=== PATIENT | male | born 1960 | race Caucasian/White ===

== ENCOUNTER 2017-06-08 08:51 | Inpatient (IN) | payer OTHER ==
[~2017-06-08] VITALS: Ht 162.6 cm; Wt 102.3 kg
--- NOTE | ~2017-06-08 | EKG ---
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 : 1960 Requested By: Arturo Richards Order Number: [id number] MD: Jose Dias Measurements Intervals [place] Rate: 50 P: -14 MN: 129 QRS: 138 QRSD: 97 T: QT: 432 QTc: 394 Interpretive Statements Incomplete EKG Sinus rhythm Poor R wave progression Low voltage, extremity leads Recommend repeat EKG with all leads present Electronically Signed On 06-10-2017 9:06:14 CDT by Jose Dias [email or web address] <ELECTRONICALLY SIGNED> By: Jose Dias MD, [facility] 06/10/17 09 075 075 Jose Dias MD, [facility] /EPI
--- NOTE | ~2017-06-08 | CATHLAB ---
[facility] [place] [address] INVASIVE PROCEDURE REPORT Name: EKATERINA REES Room #: 208-P [facility] [place] [facility]#: [id number] Admission: 06/08/17 Attend Phys: Estrada Balderas, Discharge: 06/09/17 Date of : 60 Date of Service: 06/10/17 0924 Report #: [id number] THIS REPORT FOR: //name// APPROVED REPORT Patient Details The patient is a 56 year-old male Event Personnel Arturo Richards Dermatopathologist, Pablo Watters RN RN, Cony Jean RN RN, David Mae Monitor, Yamilet No RTYenifer Monitor, Katalina Baum Procedures Performed Art Access - R femoral artery* , Complete Heart CatheterizationLe Heart Cath w/or w/o Coronaries [id number] [facility] Procedure Narrative The Right Groin^ was infiltrated with 1% Lidocaine subcutaneous anesthesia. A PINNACLE 6FR Sheath #[id number] sheath was inserted into the RFA^. Coronary angiography was performed using coronary diagnostic catheters. The right coronary system was accessed and visualized with a JR4 catheter. The left coronary system was accessed and visualized with a JL4 catheter. The left ventricle was accessed and visualized with a PIGTAIL catheter. Left ventriculogram was performed in 30 degree projection. Closure device was deployed with a 6 Fr MYNXGRIP 6/7F #[id number]. The patient tolerated the procedure well and there were no complications associated with the procedure. There was no hematoma. Intraoperative Conscious Sedation Sedation start time: 11:52 Case end Time: 12:09 Fluoro Time: 2.10 minutes Dose: 520 mGy Contrast Type and Amount: Omnipaque 160 ml Hemodynamics The aortic pressure is 126/71 mmHg with a mean of 94 mmHg. The left ventricular pressure is 115/21 mmHg with a mean of mmHg. The left ventricular end diastolic pressure is 26 mmHg. Conclusion #1 normal left ventricular size and systolic function [facility] [address] [place] [address] INVASIVE PROCEDURE REPORT Name: EKATERINA REES Room #: 208-P [facility] [place] .R.#: [id number] Admission: 06/08/17 Attend Phys: Estrada Balderas, Discharge: 06/09/17 Date of : 60 Date of Service: 06/10/17 0924 Report #: [id number] #2 left main free disease giving rise LAD and circumflex #3 LAD extends to the apex with minimal irregularity #4 nondominant circumflex with mild disease #5 dominant right coronary artery with minimal irregularity Recommendations and plan continued aggressive risk factor modification no indication for coronary intervention. No lifting for 48 hours overlying tub [employer] or [employer] for a week <ELECTRONICALLY SIGNED> By: Arturo Richards MD, [facility] 06/10/17923 3 3 Arturo Richards MD, [facility] /INF
--- NOTE | ~2017-06-08 | HC ---
[facility] [place] [address] CONSULTATION Name: EKATERINA REES KINA Room #: 208-P [facility] M.R.#: [id number] Admission: 06/08/17 Attend Phys: Estrada Balderas MD Discharge: Date of : 60 Report #: [id number] THIS REPORT FOR: //name// CC: [facility] physician/PCP Estrada Balderas CARDIOLOGY CONSULT HISTORY OF PRESENT ILLNESS: The patient is a 56-year-old male who has a history of schizophrenia and he says heart failure since 1979 with a stroke in 1979, apparently moved here from [place] the last few weeks. Although the story is somewhat not consistent, his story does change frequently. He comes in with recurrent chest pain, left neck and arm. He denies being associated with any symptoms, although the ER states he had some shortness of breath. He states he has been more fatigued; however, he never said he had a stent. He denies any prior intervention. He said he refused a cardiac catheterization in 1979, and had some kind of stroke at that time. He has multiple risk factors for coronary artery disease and is a tobacco user he states. Longstanding schizophrenia, which he admits to. Does admit to taking Lasix, levothyroxine, simvastatin, Seroquel, Dilantin, Haldol, and Cogentin. Some sort of seizure disorder, which he did not expound on. His laboratory work was relatively unremarkable. First 2 troponins were negative. The EKG is not impressive, it is a normal tracing. H and H are 14 and 43. Creatinine is 0.9. The BNP is 52, so there does not also appear to be any clinical signs of heart failure. PAST MEDICAL HISTORY: Positive for alleged heart failure, but not substantiated, history of a stroke in 1980, seizure disorder, schizophrenia, hypercholesterolemia, hypertension, although really takes no medications, and tobacco use. He denies surgeries. FAMILY HISTORY: He states he had a mother and a brother, in their 50s or 60s they had coronary issues. SOCIAL HISTORY: He lives here alone in a hotel room. He does have some family here. He denies alcohol or illicit drugs, but a pack a day smoker. REVIEW OF SYSTEMS: Essentially negative. He does have some dysuria. He has had some nocturia. ALLERGIES: PROLIXIN AND IVP DYE. PHYSICAL EXAMINATION: VITAL SIGNS: Blood pressure is 94/50, pulse is 50. HEENT: Eyes reveal xanthelasmas. Pharynx is clear. [place] [address] CONSULTATION Name: EKATERINA REES Room #: [facility] M.R.#: [id number] Admission: 06/08/17 Attend Phys: Estrada Balderas MD Discharge: Date of : 60 Report #: [id number] NECK: Shows preserved upstrokes. LUNGS: Clear. CARDIOVASCULAR: Regular rate and rhythm, S1, S2. Somewhat distant heart tones. ABDOMEN: Soft. There is slight tenderness in the midepigastric. EXTREMITIES: Reveal no edema. Distal pulses were intact. NEUROLOGIC: Nonfocal. SKIN: Warm and dry. MUSCULOSKELETAL: No gross joint deformity. I did not ambulate him. NEUROLOGIC: Intact. ASSESSMENT: 1. Chest pain, negative enzymes, normal EKG. We will further evaluate. 2. Continued tobacco use, suspect underlying chronic obstructive pulmonary disease (although normal chest x-ray). 3. Hypercholesterolemia. 4. Schizophrenia. 5. Hypothyroidism. RECOMMENDATIONS AND PLAN: We will discontinue the heparin, discontinue the IV fluids. We will check troponin and EKG in the morning. We would like him to ambulate. Echo Doppler and/or stress test versus cardiac catheterization to delineate this anatomy. He denies any prior intervention, very difficult to know if this is certainly his risk factors, difficult to know if this is anginal chest pain, I would add a PPI. He does admit to having erratic diet, and we will follow with you. Thank you for asking me to assist in the care of this patient. By: 1804 [id number] Arturo Richards MD, FACC /nt
--- NOTE | ~2017-06-08 | EKG ---
[place] [address] [place] [address] ELECTROCARDIOGRAM REPORT Name: EKATERINA REES Room #: 208-P [facility].Maryanne#: [id number] Admission: 06/08/17 Attend Phys: Estrada Balderas MD Discharge: 06/09/17 Date of : 60 Report #: [id number] THIS REPORT FOR: //name// [facility] ED Test Date: 2017-06-08 Test Time: 09:04:14 Pat Name: EKATERINA REES Department: Room: 208 Gender: M Auto Wrecker: Vivienne LOZOYA : 1960 Requested By: Order Number: [id number] MD: Jose Dias Measurements Intervals [place] Rate: 62 P: 29 [place]: 126 QRS: 50 QRSD: 95 T: 56 QT: 394 QTc: 400 Interpretive Statements Sinus rhythm Low voltage, extremity leads No previous ECG available for comparison Electronically Signed On 06-10-2017 8:55:51 CDT by Jose Dias [email or web address] <ELECTRONICALLY SIGNED> By: Jose Dias MD, [facility] 06/10/17 0855 0904 3 Jose Dias MD, FACC /EPI
[2017-06-08] MEDS ORDERED: HALDOL 0.5 MG0.5 MG PO ×2 (09:00→13:57)
[2017-06-08] MEDS ORDERED: SEROQUEL 50 MG50 MG PO (09:00)
[2017-06-08] MEDS ORDERED: DILANTIN100 MG PO (09:00)
[2017-06-08] MEDS ORDERED: BENZTROPINE MESY2 MG PO (09:00)
[2017-06-08] MEDS ORDERED: SIMVASTATIN20 MG PO (09:01)
[2017-06-08] MEDS ORDERED: LEVOTHYROXIN0.075 MG PO (09:01)
[2017-06-08] MEDS ORDERED: LASIX 40 MG TAB40 M2 PO (09:03)
[2017-06-08 09:38] LABS: ABSOLUTE NEUTROPHILS 3.1 thou/uL (1.4-8.2); EOSINOPHILS 2.8 % (0.0-3.0); HEMATOCRIT 43.7 % (42.0-52.0); HEMOGLOBIN 14.6 gm/dL (14.0-18.0); LYMPHOCYTES 30.1 % (24.0-44.0); MANUAL DIFF NO; MCH 28.8 pg (26.0-34.0); MCHC 33.3 g/dL (28.0-37.0); MCV 86.5 fL (80.0-100.0); MONOCYTES 10.8 % (1.0-8.0); PLATELET COUNT 237 thou/uL (150-400); POLYS 55.3 % (36.0-66.0); RBC 5.06 mil/uL (4.50-6.00); RDW 14.9 % (10.5-14.5); WBC 5.6 thou/uL (4.0-11.0)
[2017-06-08 09:42] LABS: ANION GAP 5 mmol/L (7-16); BUN 6 mg/dL (7-18); CALCIUM 8.9 mg/dL (8.5-10.1); CHLORIDE 103 mmol/L (98-107); CO2 32 mmol/L (21-32); CREATININE 0.9 mg/dL (0.7-1.3); GLUCOSE 87 mg/dL (74-106); POTASSIUM 3.9 mmol/L (3.5-5.1); SODIUM 140 mmol/L (136-145)
[2017-06-08 09:48] LABS: APTT 34.5 Seconds (24.5-32.8); PROTIME 10.7 Seconds (9.3-11.4)
[2017-06-08 09:59] LABS: ALBUMIN 3.3 g/dL (3.4-5.0); ALKALINE PHOSPHATASE 161 U/L (46-116); MAGNESIUM 2.1 mg/dL (1.8-2.4); NT-PRO BRAIN NAT PEPTIDE 52 pg/mL (<300); SGOT 28 U/L (15-37); SGPT 22 U/L (30-65); TOTAL BILIRUBIN 0.3 mg/dL (<0.1-1.0); TOTAL PROTEIN 7.3 g/dL (6.4-8.2); TROPONIN-I < 0.04 ng/mL (<0.04-0.07)
[2017-06-08 11:17] VITALS: BP 122/74
[2017-06-08 12:55] VITALS: BP 111/62
[2017-06-08 13:12] VITALS: BP 120/72
[2017-06-08] MEDS ORDERED: BENZTROPINE MESY2 MG (13:55)
[2017-06-08 16:40] VITALS: BP 91/48
[2017-06-08 19:50] VITALS: BP 95/56
[2017-06-08 23:26] VITALS: BP 97/62
[2017-06-09] VITALS (9 sets, daily range): BP systolic 91–118; BP diastolic 49–67
[2017-06-09 05:11] LABS: HEMATOCRIT 44.8 % (42.0-52.0); HEMOGLOBIN 14.6 gm/dL (14.0-18.0); MCH 28.5 pg (26.0-34.0); MCHC 32.7 g/dL (28.0-37.0); MCV 87.2 fL (80.0-100.0); RBC 5.13 mil/uL (4.50-6.00); RDW 15.1 % (10.5-14.5); WBC 5.5 thou/uL (4.0-11.0)
[2017-06-09 05:33] LABS: ANION GAP 4 mmol/L (7-16); BUN 9 mg/dL (7-18); CALCIUM 8.9 mg/dL (8.5-10.1); CHLORIDE 106 mmol/L (98-107); CO2 33 mmol/L (21-32); CREATININE 0.8 mg/dL (0.7-1.3); GLUCOSE 94 mg/dL (74-106); POTASSIUM 3.9 mmol/L (3.5-5.1); SODIUM 143 mmol/L (136-145); TROPONIN-I < 0.04 ng/mL (<0.04-0.07)
== END 2017-06-09 17:19 | disposition home or self-care (01) | DRG 287 ==
LOC: ER 08:51 → 2N 10:58 → EROBS 10:58 → 2N 12:55
PROVIDERS: Emergency Medicine; Internal Medicine
PROC: B2111ZZ Fluoroscopy of Multiple Coronary Arteries using Low Osmolar Contrast (ICD-10-PCS; principal; 2017-06-09)
PROC: 4A023N7 Measurement of Cardiac Sampling and Pressure, Left Heart, Percutaneous Approach (ICD-10-PCS; principal; 2017-06-09)
PROC: B2151ZZ Fluoroscopy of Left Heart using Low Osmolar Contrast (ICD-10-PCS; principal; 2017-06-09)
DX: I20.0 Unstable angina (principal); F17.210 Nicotine dependence, cigarettes, uncomplicated; E78.00 Pure hypercholesterolemia, unspecified; F20.9 Schizophrenia, unspecified; I11.0 Hypertensive heart disease with heart failure; I50.9 Heart failure, unspecified; E03.9 Hypothyroidism, unspecified; E78.5 Hyperlipidemia, unspecified; G40.909 Epilepsy, unspecified, not intractable, without status epilepticus; J45.909 Unspecified asthma, uncomplicated; Z71.6 Tobacco abuse counseling; Z91.041 Radiographic dye allergy status; Z88.8 Allergy status to other drugs, medicaments and biological substances; Z86.73 Personal history of transient ischemic attack (TIA), and cerebral infarction without residual deficits
CPT/HCPCS: 10081